=== PATIENT | male | born 1985 | race Two or more races ===

== ENCOUNTER 2023-08-16 16:11 | Emergency (ER) | payer BC ==
[~2023-08-16] VITALS: Ht 177.8 cm; Wt 124.1 kg
[2023-08-16 18:49] VITALS: BP 145/89; PULSE 99; RESP 16; TEMP 98; O2SAT 97
[2023-08-16] MEDS ORDERED: ACETAMINOPHEN 650 mg PER 20.3 mL UD PO ONE (19:15)
[2023-08-16] MEDS: DexAMETHasone SOD PHOS 10MG/1ML VIAL INJ IM ONE (19:19)
[2023-08-16] MEDS: ACETAMINOPHEN 650 mg PER 20.3 mL UD PO ONE (19:28)
[2023-08-16] MEDS ORDERED: ACETAMINOPHEN 500 MG TAB PO ONE (19:30)
== END 2023-08-16 20:07 | disposition home or self-care (01) ==
LOC: ER 16:11
DX: J03.90 Acute tonsillitis, unspecified (principal); Z98.890 Other specified postprocedural states
CPT/HCPCS: 96372; 99283; J1100